=== PATIENT | female | born 2000 | race Caucasian/White ===

== ENCOUNTER 2022-01-12 12:54 | Emergency (ER) | payer OTHER, SELFPAY ==
--- NOTE | 2022-01-12 12:58 | ED.NAVMDI ---
HPI - Nausea/Vomiting/Diarrhea General Chief complaint: Nausea/Vomiting/Diarrhea Stated complaint: nauseated stomache hurts ,vomitting Time Seen by Provider: 01/12/22 12:57 Source: patient and RN notes reviewed Mode of arrival: ambulatory Limitations: no limitations History of Present Illness MD elicited complaint: nausea, vomiting and diarrhea Onset (ago): hour(s) (12) Description of vomiting: bilious Description of diarrhea: mucus and watery Associated nausea: Yes Associated abdominal pain: No Exacerbating factors: eating Relieving factors: none Associated symptoms: denies other symptoms Related Data Allergies Allergy/AdvReac Type Severity Reaction Status Date / Time morphine Allergy Hives Verified 01/12/22 13:20 Penicillins Allergy Hives Verified 01/12/22 13:20 Review of Systems Review of Systems: All systems reviewed & are unremarkable except as noted in HPI and below PMFSH Past Medical History Medical History (Updated 01/12/22 @ 14:47 by Davon Carrillo MD) Chondromalacia of patella Surgical History Surgical History (Updated 01/12/22 @ 13:15 by Davon Carrillo MD) No pertinent past surgical history Family History Family History (System 02/20/20 @ 14:54 by Misael Hudson) Other Depression Family history of gout Family history of malignant neoplasm Family history of mental disorder Social History Social History (Updated 01/12/22 @ 13:16 by Davon Carrillo MD) Smoking packs per day: 0.25 Smoking cigarettes per day: 5.0 Smoking status: Current every day smoker Tobacco type: cigarettes Substance use: never Exam Const: General: healthy appearing, no acute distress and alert Nutritional Appearance: well nourished Orientation/consciousness: patient oriented x3 Other: 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 HENMT: Head: normal to inspection Ears: external ears normal Mouth: Yes moist mucous membranes Eyes: Cornea: corneas normal Pupils: Equal, round and reactive pupils present EOM: EOMs intact bilaterally Neck: Neck: normal visual inspection Resp: Effort & Inspection: normal respiratory effort Auscultation: clear to auscultation bilaterally Cardio: Rate: regular rate Rhythm: regular rhythm GI: GI Palp: Yes Soft to palpation, No Tenderness to palpation present (GI) and No Guarding due to palpation present (GI) Auscultation: normal bowel sounds Back/Spine/Pelvis: Cervical Spine: cervical ROM normal Thoracic/Lumbar Spine: thoraco-lumbar ROM normal Skin: General skin exam: normal color Rashes: no rashes Neuro: General: patient oriented x3, moves all extremities, no focal motor deficits and CN's II-XI intact bilaterally Speech: normal speech Gait exam (Neuro): Normal gait present Extrem: General: normal to inspection and no clubbing, cyanosis or edema Psych: Appearance: grossly normal and well kempt Mental Status: mental status grossly normal Affect: normal affect Attitude: cooperative Thought content: Yes Normal thought content present Discharge Plan Discharge Clinical Impression: Gastroenteritis, Acute hypokalemia Patient Disposition: Home, Self-Care Condition: Stable Instructions: Hypokalemia (ED), Gastroenteritis (ED) Additional Instructions: Use Gatorade or Powerade for fluid replacement. Prescriptions: New potassium chloride [Klor-Con 10] 10 mEq tablet extended release 10 meq PO DAILY Qty: 7 RF: 0 ondansetron HCl 4 mg tablet 4 mg PO Q8H PRN (Reason: nausea and vomiting) Qty: 10 RF: 0 Follow-up/Referrals: Bobby Terrell MD [Primary Care Provider] - Time of Disposition: 14:46
[2022-01-12 13:14] VITALS: BP 110/78; PULSE 107; RESP 16; TEMP 36.2; O2SAT 97
--- NOTE | 2022-01-12 13:23 | PC.NURSE ---
Rn in room with ERP during physical examination
[2022-01-12 13:33] LABS: Basophils Absolute Auto 0.01 K/mm3 (0.00-0.10); Basophils Percent Auto 0.1 % (0.0-1.0); Eosinophils Absolute Auto 0.02 K/mm3 (0.02-0.50); Eosinophils Percent Auto 0.3 % (1.0-6.0); Hematocrit 39.1 % (35.0-49.0); Hemoglobin 13.7 g/dL (12.0-15.0); Immature Granulocyte Absolute 0.03 K/mm3 (0.00-0.00); Immature Granulocyte Percent A 0.4 % (0.0-0.0); Lymphocytes Absolute Auto 0.55 K/mm3 (1.10-4.50); Lymphocytes Percent Auto 7.6 % (18.0-42.0); Mean Corpuscular Hemoglobin 30.6 pg (27.0-31.0); Mean Corpuscular Volume 87.5 fL (78.0-102.0); Mean Platelet Volume 10.3 fl (9.2-11.8); Monocytes Absolute Auto 0.36 K/mm3 (0.10-0.90); Neutrophils Absolute Auto 6.3 K/mm3 (1.7-7.2); Neutrophils Percent Auto 86.6 % (50.0-70.0); Platelet Count Result 182 K/mm3 (150-420); Red Blood Count 4.47 M/mm3 (4.20-5.40); Red Cell Distribution Width 12.5 % (11.6-14.4); White Blood Count 7.2 K/mm3 (4.8-10.8)
[2022-01-12] MEDS: ONDANSETRON HCL ODT 4 MG TABLET PO (13:36)
[2022-01-12 13:50] LABS: Alanine Aminotransferase 17 U/L (14-59); Albumin Level 3.5 g/dL (3.4-5.0); Alkaline Phosphatase 73 U/L (46-116); Anion Gap 10 mmol/L (8-16); Aspartate Amino Transferase 14 U/L (15-37); Bilirubin,Total 0.8 mg/dL (0.00-1.00); Blood Urea Nitrogen 11 mg/dL (7-18); CRP 2.3 mg/dL (0.0-0.9); Calcium 8.2 mg/dL (8.5-10.1); Carbon Dioxide 23 mmol/L (21-32); Chloride 101 mmol/L (98-108); Estimated Glomerular Filt Rate > 60; Glucose 96 mg/dL (70-99); Lipase 56 U/L (73-393); Osmolality Calculated 277 mOsm/kg (285-295); Potassium 3.3 mmol/L (3.5-5.1); Sodium 134 mmol/L (136-145); Total Protein 6.9 g/dL (6.4-8.2)
[2022-01-12 14:26] LABS: Magnesium 1.8 mg/dL (1.8-2.4)
[2022-01-12] MEDS: POTASSIUM CHLORIDE 10 MEQ TABLET PO (15:06)
[2022-01-12 15:10] VITALS: BP 105/63; PULSE 88; RESP 16; TEMP 36.9; O2SAT 98
== END 2022-01-12 15:11 | disposition home or self-care (01) ==
PROVIDERS: Emergency Provider Emergency Medicine; PCP Internal Medicine
DX: K52.9 Noninfective gastroenteritis and colitis, unspecified (principal); E87.6 Hypokalemia
CPT/HCPCS: 36415; 80053; 83690; 83735; 85025; 86140; 99283; A9270

== ENCOUNTER 2022-04-27 15:52 | Emergency (ER) | payer OTHER, SELFPAY ==
[2022-04-27 16:50] VITALS: BP 105/53; PULSE 114; RESP 16; TEMP 36.9; O2SAT 97
[2022-04-27 17:43] LABS: Add Urine Microscopic? YES; Bilirubin Urine Negative (Negative); Blood Urine Negative (Negative); Color Urine Light Yellow (Yellow); Glucose Urine UA Negative (Negative); Ketones Urine 2+ (Negative); Leukocyte Esterase Ur Negative LEU/UL (Negative); Nitrate Urine Negative (Negative); Protein Urine Negative (Negative); Urobilinogen Urine 0.2 mg/dL (0.2-1.0)
[2022-04-27 17:48] LABS: Appearance Urine Slightly Cloudy (Clear); Pregnancy On Board Control Positive; Urine Pregnancy Test Positive
[2022-04-27 17:49] LABS: Bacteria Urine Trace /hpf; Squamous Epithelial Cell Urine Moderate /hpf (Few)
[2022-04-27 18:30] VITALS: BP 118/62; PULSE 106; RESP 18; O2SAT 99
[2022-04-27] MEDS: ACETAMINOPHEN 500 MG TABLET 1000 MG PO (18:41)
[2022-04-27] MEDS: ONDANSETRON HCL ODT 4 MG TABLET PO (18:42)
[2022-04-27 19:15] LABS: Influenza A QL RT-PCR Negative (Negative); Influenza B QL RT-PCR Negative (Negative); SARS-CoV-2 Ag Positive (Negative)
--- NOTE | 2022-04-27 19:29 | ED.GENADULT ---
HPI - General Adult General Chief complaint: Nausea/Vomiting/Diarrhea Stated complaint: vomiting, chills, body aches History of Present Illness HPI narrative: This is a 11 presenting ED with 1 day of nausea vomiting and diarrhea. Patient has 4 episodes of nonbloody nonbilious vomiting today. She has been able to sip small amounts of water throughout the day. Associated symptoms include body aches, headache and fatigue. Patient denies fever, cough, shortness of breath, chest pain. Patient denies any urinary symptoms or vaginal discharge. Patient denies any sick contacts at home. She is not vaccinated against COVID-19. Patient has care has been with her OBGYN next week. Related Data Home Medications Medication Instructions Recorded Confirmed vit#24-iron amino acid 1 tablet PO DAILY 04/27/22 04/27/22 chelat-folic acid 30 mg-975 mcg tablet Allergies Allergy/AdvReac Type Severity Reaction Status Date / Time morphine Allergy Hives Verified 04/27/22 17:07 Penicillins Allergy Hives Verified 01/12/22 13:20 Review of Systems Constitutional: Constitutional: Denies fever(s) Eyes: Eyes: Reports no additional eye complaints ENT: Denies dizziness Cardiovascular: Cardiovascular: Denies chest pain Respiratory: Respiratory: Denies dyspnea Gastrointestinal: Gastrointestinal: Denies abdominal pain Genitourinary: Genitourinary: Denies abnormal vaginal bleeding Musculoskeletal: Musculoskeletal: Reports myalgias Integumentary/Breasts: Skin/Breast: Denies rash Neurologic: Denies dizziness Psychiatric: Psychiatric: Denies anxiety Endocrine: Endocrine: Denies excessive sweating Hematologic/Lymphatic: Hematologic/Lymphatic: Denies easy bleeding Allergic/Immunologic: Allergic/Immunologic: Denies as per HPI [facility] Past Medical History Medical History Chondromalacia of patella Surgical History Surgical History No pertinent past surgical history Family History Family History Other Depression Family history of gout Family history of malignant neoplasm Family history of mental disorder Social History Social History Smoking packs per day: 0.25 Smoking cigarettes per day: 5.0 Smoking status: Current every day smoker Tobacco type: cigarettes Substance use: never Exam Narrative: Patient is lying in bed in no apparent Const: General: healthy appearing, no acute distress and alert Nutritional Appearance: well nourished Orientation/consciousness: patient oriented x3 Limitations: no limitations HENMT: Head: normal to inspection Ears: external ears normal General nose exam: Normal external nose present Face and sinus: normal facial exam Mouth: Yes Normal oral and palatal mucosa present Eyes: Conjunctivae: conjunctivae normal Pupils: Equal, round and reactive pupils present Neck: Neck: normal visual inspection Chest: Chest palpation & inspection: normal inspection of the chest Resp: Effort & Inspection: normal respiratory effort and no use of accessory muscles Auscultation: no crackles, no rales and no rhonchi Cardio: Rate: tachycardic Rhythm: regular rhythm GI: GI Palp: Yes Soft to palpation, No Tenderness to palpation present (GI), No Guarding due to palpation present (GI) and No Rigid due to palpation Other: Uterus is palpable to the umbilicus which is consistent with her . Back/Spine/Pelvis: Back: No no CVA tenderness Skin: General skin exam: normal color Neuro: General: patient oriented x3 and moves all extremities Extrem: General: normal to inspection Psych: Mental Status: mental status grossly normal Course Vital Signs Vital signs: Vital Signs Temperature 98.4 F 04/27/ 16:50 Pulse Rate 114
--- NOTE | 2022-04-27 19:56 | PC.NURSE ---
Pt signed HIV refusal stating she had done in her OB office.
[2022-04-27 19:57] VITALS: BP 110/65; PULSE 100; RESP 20; TEMP 37; O2SAT 98
== END 2022-04-27 19:59 | disposition home or self-care (01) ==
PROVIDERS: Emergency Provider Emergency Medicine; PCP Internal Medicine
DX: U07.1 COVID-19 (principal); B34.9 Viral infection, unspecified
CPT/HCPCS: 81001; 81025; 87426; 87502; 99283; A9270; C9803

== ENCOUNTER 2022-10-05 10:34 | Emergency (ER) | payer OTHER, SELFPAY ==
--- NOTE | ~2022-10-05 | XR_ITS ---
EXAMINATION: XR knee LT 2V DATE: 10/05/2022 11:09 INDICATION: Left knee patellar dislocation presenting with pain and inability to bend the knee TECHNIQUE: AP and crosstable lateral views of the left knee were obtained. Patient was unable to flex the knee for a sunrise view. COMPARISON: None. FINDINGS: The patella although appearing in normal alignment on the lateral projection projects significantly m ore lateral to the intercondylar notch and normal on the frontal projection consistent with a lateral patellar dislocation. No fracture. Soft tissues are unremarkable with no knee joint effusion. IMPRESSION: 1. Lateral dislocation of the patella. Reviewed, dictated and finalized at location A. [facility]IN[facility]
--- NOTE | ~2022-10-05 | XR_ITS ---
EXAMINATION: XR knee LT 3V DATE: 10/05/2022 12:01 INDICATION: Postreduction left patellar dislocation TECHNIQUE: AP, lateral and sunrise views of the left knee were obtained. COMPARISON: 10/05/2022 at 11:10 AM FINDINGS: Successful reduction of the previously dislocated left patella which is now in anatomic alignment. Th ere is a small minimally displaced avulsion fracture fragment along the medial margin of the medial p atellar facet. No other fractures identified. Joint spaces are normal. Soft tissues are unremarkable . No left knee joint effusion. IMPRESSION: 1. Successful reduction of previously laterally dislocated left patella. 2. Small minimally displaced avulsion fracture along the medial margin of the patella. Reviewed, dictated and finalized at location A. [employer] IMPRESSION: 1. Successful reduction of previously laterally dislocated left patella. 2. Small minimally displaced avulsion fracture along the medial margin of the p atella.
[2022-10-05 10:35] VITALS: BP 127/62; BP 127/67; PULSE 60; RESP 20; TEMP 36.7; O2SAT 100
--- NOTE | 2022-10-05 10:47 | ED.GENADULT ---
HPI - General Adult General Chief complaint: Extremity Injury, Lower Stated complaint: Left knee pain Time Seen by Provider: 10/05/22 10:44 History of Present Illness HPI narrative: Miranda is a 22F with a PMH of patellar dislocation x1 several years ago presented to the ED with left knee pain and dislocation. She was just walking when her left knee popped and she had excruciating pain. No other injuries or concerns reported. Related Data Allergies Allergy/AdvReac Type Severity Reaction Status Date / Time morphine Allergy Hives Verified 10/05/22 10:50 Penicillins Allergy Hives Verified 10/05/22 10:51 Review of Systems Review of Systems: All systems reviewed & are unremarkable except as noted in HPI and below PMFSH Past Medical History Medical History Chondromalacia of patella Surgical History Surgical History No pertinent past surgical history Family History Family History Other Depression Family history of gout Family history of malignant neoplasm Family history of mental disorder Social History Social History Smoking packs per day: 0.25 Smoking cigarettes per day: 5.0 Smoking status: Current every day smoker Tobacco type: cigarettes Substance use: never Exam Const: Other: In moderate discomfort HENMT: Head: normal to inspection Ears: external ears normal Face/Nose/Sinus: Normal external nose present Face and sinus: normal facial exam Eyes: Conjunctivae: conjunctivae normal Neck: Neck: normal visual inspection Chest: Chest palpation & inspection: normal inspection of the chest Resp: Effort & Inspection: normal respiratory effort Cardio: Rate: regular rate Skin: General skin exam: normal color Rashes: no rashes Neuro: General: patient oriented x3 Cranial nerves: Yes Nystagmus not present Speech: normal speech Extrem: Other: Left patella appears to be dislocated laterally Psych: Mental Status: mental status grossly normal Course Course Emergency Course: given 75 of fentanyl and radiographs were done which showed a lateral dislocation. A reduction was performed as above. Follow up radiographs: EXAMINATION: XR knee LT 3V DATE: 10/05/2022 12:01 INDICATION: Postreduction left patellar dislocation TECHNIQUE: AP, lateral and sunrise views of the left knee were obtained. COMPARISON: 10/05/2022 at 11:10 AM FINDINGS: Successful reduction of the previously dislocated left patella which is now in anatomic alignment. There is a small minimally displaced avulsion fracture fragment along the medial margin of the medial patellar facet.? No other fractures identified. Joint spaces are normal. Soft tissues are unremarkable. No left knee joint effusion. IMPRESSION: 1. Successful reduction of previously laterally dislocated left patella. 2. Small minimally displaced avulsion fracture along the medial margin of the patella. She was placed in a knee immobilizer and discharged to follow up with her PCP and get a possible ortho consult Vital Signs Vital signs: Vital Signs Temperature 98.1 F 10/05/22 10:35 Pulse Rate 60 10/05/22 10:35 Respiratory Rate 20 10/05/22 10:35 Blood Pressure 127/67 10/05/22 10:35 Pulse Oximetry 100 10/05/22 10:35 Oxygen Delivery Room Air 10/05/22 10:35 Temperature 98.0 F 10/05/22 12:22 Pulse Rate 79 10/05/22 12:22 Respiratory Rate 16 10/05/22 12:22 Blood Pressure 126/74 10/05/22 12:22 Pulse Oximetry 99 10/05/22 12:22 Oxygen Delivery Room Air 10/05/22 12:22 Procedures Orthopedic Joint Reduction Joint #1: Orthopedic Joint Reduction Date: 10/05/22 Orthopedic Joint Reduction Time: 11:45 Side: left Joint Reduction Location: knee/patella Analgesia: other (fentanyl)
[2022-10-05] MEDS: fentaNYL CITRATE INJ (*CRX) 100 MCG/2 ML VIAL 75 MCG IV PUSH (10:53)
[2022-10-05 11:00] VITALS: BP 118/70; PULSE 74; RESP 16; O2SAT 100
[2022-10-05 11:30] VITALS: BP 129/68; PULSE 83; RESP 18; TEMP 36.2; O2SAT 100
[2022-10-05] MEDS: fentaNYL CITRATE INJ (*CRX) 100 MCG/2 ML VIAL (11:41)
[2022-10-05 11:48] VITALS: BP 105/62; PULSE 61; RESP 16; O2SAT 98
[2022-10-05 12:22] VITALS: BP 126/74; PULSE 79; RESP 16; TEMP 36.7; O2SAT 99
== END 2022-10-05 12:29 | disposition home or self-care (01) ==
PROVIDERS: Emergency Provider Family Medicine; PCP Internal Medicine
DX: S83.015A Lateral dislocation of left patella, initial encounter (principal); S82.002A Unspecified fracture of left patella, initial encounter for closed fracture; F17.210 Nicotine dependence, cigarettes, uncomplicated; X58.XXXA Exposure to other specified factors, initial encounter
CPT/HCPCS: 27560; 73560; 73562; 96374; 96376; 99285; J3010; L1830

== ENCOUNTER 2022-10-28 16:08 | Outpatient (RCR) | payer OTHER, SELFPAY ==
--- NOTE | 2022-10-28 16:48 | PTOPEVAL1 ---
Assessment and note entered by JT File, PT Evaluation Information Assessment Status Evaluation Diagnosis subluxation of L patella, hematoma L knee Onset 10/05/22 Subjective Information patient reports she was walking in her house and her L knee cap popped out of place. she reports the fell to the floor and the knee cap was stuck dislocated to the lateral side of the knee. she reports it was relocated by the hospital. she reports she has had an xray of the L knee, but no MRI as of this date. she reports she is trying therapy first and then will follow up for more invasive procedure if needed. she reports she returns to ortho on 11/14/22. she reports she has increased pain with bending the L knee. Reported Pain Level Pain Score 0: Self Report Assessment PT Clinical Summary ms. dunbar presents to skilled PT services for evaluation and treatment of L knee pain following patellar dislocation about 3 weeks ago. she presents this date with decreased rom, swelling, pain, and abnormal gait mechanics. she would benefit from continued skilled PT to improve her objective/functional deficits and progress towards a return to her prior level functional activity performance/quality of life. Plan of Care Interventions Electrical Stimulation,Gait Training,Hot Pack/Cold Pack,Intermittent Compression,Manual Therapy, Neuro Re-education,Patient/Caregiver Educati, Therapeutic Activities,Therapeutic Exercise PT Services Indicated Yes Treatment Frequency and 2x weekly for 8 visits Duration These treatments will address the objective and functional deficits as defined above. The patient will be advanced safely and appropriately in order for the patient to progress towards his/her prior level of function. Additional exercises will be introduced and as well as a comprehensive home exercise program upon discharge, if needed, ?to ensure carryover of functional gains achieved in the clinic. This treatment plan has been reviewed and agreement upon by the patient.
== END 2022-12-03 19:00 | disposition home or self-care (01) ==
LOC: CHSPT 16:08
PROVIDERS: Visit Provider Nurse Practitioner Family
DX: S83.002D Unspecified subluxation of left patella, subsequent encounter (principal)
CPT/HCPCS: 97016; 97110; 97161; 97530